=== PATIENT | male | born 1990 | race Caucasian/White ===

== ENCOUNTER 2020-07-16 20:23 | Emergency (ER) | payer SELFPAY ==
[2020-07-16] MEDS ORDERED: KETOROLAC TROMETHAMINE 30 MG/1 ML VIAL IVPUSH ONE (20:31)
[2020-07-16] MEDS ORDERED: SODIUM CHLORIDE 1,000 ML IV STA (20:31)
[2020-07-16] MEDS ORDERED: ONDANSETRON 4 MG/2 ML VIAL IVPUSH ONE (20:31)
[2020-07-16 20:33] VITALS: BMI 45.9
--- NOTE | 2020-07-16 20:33 | PDOC ---
Rapid Medical Evaluation Chief Complaint: Pain Time Seen by Provider: 07/16/20 20:30 Medical Evaluation: Allergies Allergy/AdvReac Type Severity Reaction Status Date / Time No Known Allergies Allergy Verified 02/12/14 18:58 07/16/20 20:32 CC: upper bd sharp pain since this am with 2 episodes of vomiting, no other complaints Exam: obese, tender to upper quadrants, no cva tenderness Plan: labs, urine, meds, ivf Discharge Disposition - Diagnosis Abdominal pain - Referrals - Patient Instructions - Post Discharge Activity
--- NOTE | 2020-07-16 21:43 | PDOC ---
History of Present Illness - General Chief Complaint: Pain Stated Complaint: ABD PAIN Time Seen by Provider: 07/16/20 20:30 History Source: Patient Exam Limitations: No Limitations - History of Present Illness Initial Comments: 07/16/20 21:43 Jefry Agudelo is a 30M with PMH obesity, alcohol use disorder, asthma, GERD, presenting with acute onset epigastric pain. Pain began at 01:30 this morning in the epigastric region, but slowly got worse throughout the day. Noticed it while at work this morning, is a operator and truck driver, was able to tolerate breakfast and a soda. Now complaining of a constant, strong, generalized abdominal pain with 4x episodes of N/V, unrelated to meals. Denies constipation, diarrhea, or urinary symptoms. No PSH. Drinks beer/tequila daily, last EtOH intake yesterday, denies any alcohol today. Denies EtOH withdrawal symptoms. Denies daily medications. Denies illegal drug use. No chest pain, SOB, GOLDBERG, dizziness, has been using albuterol inhaler more often recently but no JUNG. Past History - Medical History Allergies/Adverse Reactions: Allergies Allergy/AdvReac Type Severity Reaction Status Date / Time No Known Allergies Allergy Verified 07/16/20 20:33 Home Medications: Ambulatory Orders Albuterol Sulfate Inhaler - [Ventolin HFA Inhaler -] 2 inh PO Q4H PRN #1 inh 12/04/13 Albuterol Sulfate Inhaler - [Ventolin HFA Inhaler -] 2 inh PO Q4H PRN #1 inh 02/12/14 predniSONE [Deltasone -] 20 mg PO BID #8 tablet 02/12/14 Ondansetron HCl 4 mg PO BID PRN 7 Days #14 tablet 07/17/20 Asthma: Yes COPD: No - Psycho-Social/Smoking History Smoking History: Never smoked Have you smoked in the past 12 months: No - Substance Abuse Hx (Audit-C & DAST Scrn) How often the patient has a drink containing alcohol: 2-3 times / week Score: In Men: 4 or > Positive; In Women: 3 or > Positive: 3 Screen Result (Pos requires Nsg. Audit-10AR): Negative Review of Systems - Review of Systems Able to Perform ROS?: Yes Constitutional: No: Fever HEENTM: No: Symptoms Reported Respiratory: No: Cough, Shortness of Breath, SOB with Exertion, SOB at Rest Cardiac (ROS): No: Symptoms Reported ABD/GI: Yes: Nausea, Poor Appetite, Poor Fluid Intake, Vomiting, Abdominal cramping. No: Constipated, Diarrhea : No: Symptoms Reported Musculoskeletal: No: Symptoms Reported Integumentary: No: Symptoms Reported Neurological: No: Symptoms reported Endocrine: No: Symptoms Reported Hematologic/Lymphatic: No: Symptoms Reported All Other Systems: Reviewed and Negative *Physical Exam - Vital Signs Last Vital Signs Temp Pulse Resp BP Pulse Ox 98 F 72 18 133/78 99 07/16/20 20:30 07/16/20 20:30 07/16/20 20:30 07/16/20 20:30 07/16/20 20:30 - Physical Exam General Appearance: Yes: Nourished, Appropriately Dressed, Mild Distress, Obese, Other (resting in bed clutching his abdomen, mild distress) HEENT: positive: EOMI, ANGELO, Normal Voice, Symmetrical, Pharynx Normal, Hearing Grossly Normal. negative: Scleral Icterus (R), Scleral Icterus (L), Pharyngeal Erythema, Tonsillar Exudate, Tonsillar Erythema Neck: positive: Trachea midline, Normal Thyroid, Supple. negative: Tender, Rigid, Lymphadenopathy (R), Lymphadenopathy (L), Tender lateral, Tender midline Respiratory/Chest: positive: Wheezing (mild end-expiratory both sides). negative: Chest Tender, Normal Breath Sounds, Respiratory Distress, Accessory Muscle Use, Labored Respiration, Rapid RR, Crackles, Rales, Rhonchi, Stridor Cardiovascular: positive: Regular Rhythm, Regular Rate. negative: Murmur Gastrointestinal/Abdominal: positive: Normal Bowel Sounds, Tender (epigastric/RUQ, +Alas), Soft, Protuberent. negative: Guarding, Rebound, Hernia Extremity: positive: Normal Capillary Refill, Normal Inspection, Normal Range of Motion, Pelvis Stable. negative: Tender, Pedal Edema, Swelling, Calf Tenderness Integumentary: positive: Normal Color, Dry, Warm Neurologic: positive: Fully Oriented, Alert, Normal Mood/Affect, Normal Response, Motor Strength 5/5 ED Treatment Course - LABORATORY CBC & Chemistry Diagram: 07/16/20 23:05 07/16/20 22:39 Medical Decision Making - Medical Decision Making 07/16/20 23:20 Patient has history of daily EtOH use and no PSH presenting with acute onset worsening epigastric pain, concern for pancreatits, gastritis, GB pathology, lower suspicion of ACS. Ordered CBC/CMP/liapse/ECG/CXR/lactate/UA/UC, giving Zofran, IV NS bolus, and Toradol for presumed pancreatitis pain. Ordering RUQ US for eval gallstone pancreatitis vs. cholecystitis. 07/16/20 23:22 Labs notable for: - WBC 15.7 with 88.5% neutrophils - lactic acid 0.8 - K 5.2 - lipase 21, less likely pancreatitis - ALT 112 - AST 99 Given labs, less likely pancreatitis, still concerned for GB pathology given elevated WBC and transaminitis. Patient in US now. 07/17/20 00:22 US read shows normal appearing GB with CBD dilation to 9.3mm, no evidence of stones in the GB or wall thickening. 07/17/20 00:38 Patient re-evaluated, feeling much better, in NAD, non-tender abdomen. No nausea, pain gone after Zofran or Toradol. Per attending, suspect that patient more likely has alcohol-induced gastritis as opposed to norbert GB pathology. Will send patient home with clinic f/u and possible GI follow-up. Sending home with Zofran Rx, Discharge - Discharge Information Problems reviewed: Yes Clinical Impression/Diagnosis: Abdominal pain Qualifiers: Abdominal location: generalized Qualified Code(s): R10.84 - Generalized abdominal pain Condition: Stable - Admission No - Additional Discharge Information Prescriptions: Ondansetron HCl 4 mg PO BID PRN 7 Days #14 tablet PRN Reason: Nausea - Follow up/Referral Referrals: Adonis Elmore DO [Staff Physician] - [facility] [place] [Provider Group] - Patient Discharge Instructions Patient Printed Discharge Instructions: DI for Alcoholic Gastritis Additional Instructions: Today you were evaluated for abdominal pain. Your blood works show that you have elevated liver enzymes, and you ultrasound does not show any clear disease process that needs treatment at this time. At home, do not drink alcohol, and avoid foods high in fat or spice. Eat mostly bland foods and soups. We have sent a prescription for a nausea medication called Zofran which you can take for nausea as needed. Please follow-up with the clinic for further evaluation of your elevated liver enzymes and abdominal pain. If you experience fevers, worsening abdominal pain, diarrhea, worse vomiting, or any other new or concerning symptoms, please return to the emergency room. - Post Discharge Activity
[2020-07-16] MEDS ORDERED: KETOROLAC TROMETHAMINE 30 MG/1 ML VIAL ONE (22:09)
--- NOTE | 2020-07-16 22:45 | PDOC ---
Attending Attestation - Resident Resident Name: Josep Sandoval - ED Attending Attestation I have performed the following: I have examined & evaluated the patient, The case was reviewed & discussed with the resident, I agree w/resident's findings & plan, Exceptions are as noted - HPI HPI: 07/16/20 22:44 this 30 yo male p/w epigastric pain,nausea and vomiting x 4 . He does drink alcohol every day. He has never had any surgeries - Physicial Exam PE: 07/16/20 22:45 wnwd 30 yo male p/w epigastric pain and vomiting head ncat neck supple lungs cta b/l cvs [id number] abdomen protuberant, + epigastric tenderness no cva tenderness extremities no edema skin warm and dry, extensive tatoos neuro axox3, ambulatory 07/17/20 00:34 - Medical Decision Making 07/16/20 22:47 concern for pancreatis,cholecystitis lipase,cbc,comp,IVF,zofran,US 07/17/20 00:36 US no evidence of cholecystitis lipase only 21 pt has no further vomiting no RLQ pain imp gastritis Discharge - Discharge Information Problems reviewed: Yes Clinical Impression/Diagnosis: Abdominal pain Qualifiers: Abdominal location: generalized Qualified Code(s): R10.84 - Generalized abdominal pain Condition: Stable - Additional Discharge Information Prescriptions: Ondansetron HCl 4 mg PO BID PRN 7 Days #14 tablet PRN Reason: Nausea - Follow up/Referral Referrals: Adonis Elmore DO [Staff Physician] - - Patient Discharge Instructions Patient Printed Discharge Instructions: DI for Alcoholic Gastritis Additional Instructions: Today you were evaluated for abdominal pain. Your blood works show that you have elevated liver enzymes, and you ultrasound does not show any clear disease process that needs treatment at this time. At home, do not drink alcohol, and avoid foods high in fat or spice. Eat mostly bland foods and soups. We have sent a prescription for a nausea medication called Zofran which you can take for nausea as needed. Please follow-up with the clinic for further evaluation of your elevated liver enzymes and abdominal pain. If you experience fevers, worsening abdominal pain, diarrhea, worse vomiting, or any other new or concerning symptoms, please return to the emergency room. - Post Discharge Activity
[2020-07-16 23:08] LABS: BASO % 0.4 % (0-2.0); EOS % 0.4 % (0-4.5); HEMATOCRIT 47.7 % (35.4-49); HEMOGLOBIN 15.6 GM/dL (11.7-16.9); MCH 29.6 pg (25.7-33.7); MCHC 32.7 g/dl (32.0-35.9); MEAN CELL VOLUME 90.4 fl (80-96); MEAN PLT VOLUME 8.4 fl (7.5-11.1); MONO % 3.7 % (3.8-10.2); NEUT % 88.5 % (42.8-82.8); PLATELET COUNT 219 K/MM3 (134-434); RBC 5.28 M/mm3 (4.00-5.60); RDW 13.5 % (11.9-15.9); WHITE BLOOD COUNT 15.7 K/mm3 (4.0-10.0)
[2020-07-16 23:26] LABS: ALBUMIN 3.6 g/dl (3.4-5.0); BILIRUBIN,TOTAL 0.7 mg/dL (0.2-1); BLOOD UREA NITROGEN 12.2 mg/dL (7-18); CALCIUM 8.7 mg/dL (8.5-10.1); CREATININE 0.9 mg/dL (0.55-1.3); MAGNESIUM 2.5 mg/dL (1.8-2.4); POTASSIUM 5.2 mmol/L (3.5-5.1); TOT PROT 8.3 g/dl (6.4-8.2)
[2020-07-17 03:02] VITALS: BP 128/68; PULSE 74; TEMP 98.2
== END 2020-07-17 01:25 | disposition home or self-care (01) ==
LOC: JER 20:23
PROC: 3E0333Z Introduction of Anti-inflammatory into Peripheral Vein, Percutaneous Approach (ICD-10-PCS; principal; 2020-07-16)
PROC: 3E033GC Introduction of Other Therapeutic Substance into Peripheral Vein, Percutaneous Approach (ICD-10-PCS; 2020-07-16)
PROC: 3E0337Z Introduction of Electrolytic and Water Balance Substance into Peripheral Vein, Percutaneous Approach (ICD-10-PCS; 2020-07-16)
DX: R10.84 Generalized abdominal pain (principal)
CPT/HCPCS: 36415; 71045-TC-FY; 76705-TC; 80053; 83605; 83690; 83735; 85025; 99285-25